=== PATIENT | female | born 1950 | race Caucasian/White ===

== ENCOUNTER → 2021-10-07 09:07 | Outpatient (BNVA) | payer MEDICARE, MEDICAID, SELFPAY | PROVIDERS: Family Provider Family Medicine; PCP Family Medicine; Visit Provider Family Medicine | DX: E78.2 Mixed hyperlipidemia (principal); I10 Essential (primary) hypertension | CPT/HCPCS: 80053; 80061; 84439; 84443; 85025 ==

== ENCOUNTER → 2022-04-15 09:33 | Outpatient (BNVA) | payer MEDICARE, MEDICAID, SELFPAY | PROVIDERS: Family Provider Family Medicine; PCP Family Medicine; Visit Provider Family Medicine | DX: I10 Essential (primary) hypertension (principal); E78.2 Mixed hyperlipidemia; R73.9 Hyperglycemia, unspecified | CPT/HCPCS: 80053; 80061; 83036 ==

== ENCOUNTER 2022-06-03 08:24 | Outpatient (CLI) | payer MEDICARE, MEDICAID, SELFPAY ==
--- NOTE | 2022-06-03 08:30 | US_ITS ---
WS: [id number] Complete ABDOMINAL ULTRASOUND HISTORY: R74.02 - Elevation of levels of lactic acid dehydrogenase... COMPARISON: None available. Liver: 13.1 cm in length. Normal size liver. Mild increased echogenicity suggesting hepatic steatosis . No mass or bile duct dilatation. Portal Vein: Normal hepatopetal flow with monophasic waveform. Gallbladder: Normally distended gallbladder. There are echogenic foci with shadowing in the wall of t he gallbladder. These may be within the wall of the gallbladder or the adjacent liver. Suspect these are gallbladder wall calcifications. No mobile intraluminal calcification. There is shadowing from th e gallbladder neck which may be intraluminal. Gallbladder wall thickness: 0.2 cm. Pancreas: Poorly visualized. CBD: 0.3 cm. Right kidney: 9.9 cm x 5.4 cm x 5.0 cm. Low normal size kidney with increased echogenicity. No mass. Left kidney: 10.3 cm x 4.3 cm x 4.8 cm. No mass, cortical thickening or hydronephrosis. Spleen: Normal size spleen with granulomata. Abdominal aorta and IVC are within normal limits for age. No ascites. US/US abdomen complete* [id number] IMPRESSION: 1. Abnormal gallbladder. There are areas of shadowing from the gallbladder wal l and gallbladder neck. Suspect gallbladder wall calcification and a small ston e at the gallbladder neck. No evidence for acute cholecystitis at this time. CT evaluation may be helpful to evaluate the position of the calcifications. If t here is a stone at the gallbladder neck patient is at risk for entrapment and a cute cholecystitis. Consider surgical evaluation. 2. No bile duct dilatation.
== END 2022-06-03 08:25 | disposition home or self-care (01) ==
LOC: RAD 08:25
PROVIDERS: PCP Family Medicine; Visit Provider Family Medicine
DX: R74.02 Elevation of levels of lactic acid dehydrogenase [LDH] (principal); R93.2 Abnormal findings on diagnostic imaging of liver and biliary tract
CPT/HCPCS: 76700